=== PATIENT | female | born 1935 | race Caucasian/White ===

== ENCOUNTER → 2017-01-08 | Outpatient (CLI) | payer MEDICARE | LOC: MAMO 11:24 | DX: Z12.31 Encounter for screening mammogram for malignant neoplasm of breast (principal) | CPT/HCPCS: G0202 ==

== ENCOUNTER → 2021-09-19 | Outpatient (CLI) | payer MEDICARE ==
[~2021-09-19] MED LIST: ASPIRIN EC81 MG PO; BISOPROLOL-HCT1 EACH PO; NORVASC 5 MG TAB5 MG PO; TRAMADOL HCL50 MG PO
== END ==
LOC: RAD 15:55
DX: R06.00 Dyspnea, unspecified (principal)
CPT/HCPCS: 71046